=== PATIENT | male | born 1980 | race Caucasian/White ===

== ENCOUNTER → 2024-03-25 06:43 | Day surgery (SDC) | payer BC, SELFPAY ==
[2024-03-25] VITALS (14 sets, daily range): BP systolic 114–133; BP diastolic 70–102; BMI 34.4
[2024-03-25] MEDS: TYLENOL 1000 MG PO (13:59)
[2024-03-25] MEDS: NORMOSOL-R 1000 IV (14:00)
--- NOTE | 2024-03-25 19:10 | OR.RPT ---
Operative Report
Operative Report
Primary Surgeon: Whit
Assisting: Cynthia GRUBER
Pre-op Diagnosis: Umbilical hernia
Post-op Diagnosis: Incarcerated umbilical hernia
Procedure Performed: Robot assisted laparoscopic repair incarcerated umbilical hernia (rTAPP)
Anesthesia Type: GETA + TAP block
Specimen / Cultures: None
Estimated Blood Loss: 10cc
Complications: None immediate
Operative Findings: 1cm defect with incarcerated fat; [age]ic bard soft mesh
Date of Surgery:� 03/25/24
Indications:� This 43M developed�a symptomatic umbilical hernia. Repair was thus indicated and laparoscopic approach was elected.
Description of procedure:� The patient was taken to the operating room and the correct site of surgery was verified. General anesthesia was induced and the patient was placed supine on the operating table with arms tucked.� The patient�s abdomen was
prepped and draped in standard sterile fashion. A time-out was completed verifying correct patient, procedure, site, positioning, and implants and special equipment prior to beginning this procedure. A stab incision was made in the left upper
quadrant, a Veress needle was inserted and proper position was confirmed by aspiration and saline drop test. Following this, pneumoperitoneum was created with insufflation of carbon dioxide to 12 mmHg. Then a 8mm robotic trocar was inserted at the
left anterior axillary line at the level of the umbilicus. A laparoscope was inserted and the area of initial trocar entry and Veress needle placement were both inspected and free of trauma. Two 8mm trocars were then placed a hand's breadth above
and below the initial trocar under direct visualization. The peritoneum was incised at the falciform ligament and a flap was developed in transverse and caudad directions using blunt and sharp dissection. The umbilical defect measured as above and
contained incarcerated fat. The defect was closed with 0 PDS stratafix suture.� A 10 x 10cm piece of bard soft mesh was passed into the abdomen. The mesh was moved into position to lay flat against the abdominal wall, centered on the defect. The
mesh was secured into place using 2-0 vicryl suture under the defect and at all four corners as well as care home along each side.� A 2-0 monocryl stratafix was used to close the flap. 2-0 vicryl was used to repair flap rents on the left lateral
aspect and under the defect. A transversus abdominis plane block was performed under laparoscopic vision using decadron/marcaine. After ensuring adequate hemostasis, the trocars were removed and the pneumoperitoneum allowed to escape. The trocar
incisions were closed at the skin level using 4-0 monocryl and topical skin adhesive. The patient tolerated the procedure well and was taken to the postanesthesia care unit in stable condition.
The assistance of Cynthia CAM was required due to the complexity of the procedure. During the procedure she assisted with retraction, resection, and closure of the wound.
[2024-03-25] MEDS: DILAUDID 0.25 MG IV (20:29)
== END | disposition home or self-care (01) ==
LOC: SDS 06:43
PROVIDERS: ATTENDING PHYSICIAN Surgery
DX: K42.0 Umbilical hernia with obstruction, without gangrene (principal)
CPT/HCPCS: 49592; C1781